=== PATIENT | male | born 1940 | race Caucasian/White ===

== ENCOUNTER 2017-12-20 19:35 | Inpatient (IN) | payer MEDICARE ==
[~2017-12-20] VITALS: Ht 193 cm; Wt 83.5 kg
[~2017-12-20 19:35] MED LIST: INSU3INS6 SUBCUT; LISI40TA4 PO; SIMV40TA5 PO
--- NOTE | 2017-12-20 19:40 | NUR ---
PT STOP594 FROM HOME. PER "MORE ALTERED THAN USUAL" AND "UNABLE TO WALK." PATIENT AAOX1. VSS. NAD NOTED. SKIN WARM AND DRY. COMFORT MEASURES RENDERED. SAFETY MEASURES IN PLACE.
[2017-12-20] MEDS ORDERED: IV NS 0.9% 500 ML BAG IV ONE (20:30)
--- NOTE | 2017-12-20 20:30 | NUR ---
PATIENT TO CT.
[2017-12-20 21:08] LABS: BASOPHILS # (AUTO) 0.1 /CMM (0.0-0.2); BASOPHILS % (AUTO) 0.7 % (0.0-2.0); EOSINOPHILS # (AUTO) 0.1 /CMM (0.0-0.7); EOSINOPHILS % (AUTO) 1.1 % (0.0-6.0); HEMATOCRIT 42 % (39-51); HEMOGLOBIN 14.7 g/dL (13.5-17.5); MEAN CORPUSCULAR HEMOGLOBIN 31 PG (26.0-33.0); MEAN CORPUSCULAR HGB CONC 36 g/dl (31.0-36.0); MEAN CORPUSCULAR VOLUME 88 fL (80-96); MONOCYTES # (AUTO) 0.8 /CMM (0.1-1.30); MONOCYTES % (AUTO) 9.5 % (2.0-12.0); NEUTROPHILS % (AUTO) 76.7 % (43.0-81.0); PLATELET COUNT (AUTO) 169 /CMM (150-450); RDW COEFFICIENT OF VARIATION 12.1 (11.5-15.0)
[2017-12-20 21:18] LABS: CALCIUM, SERUM 9.2 mg/dL (8.5-10.1); CARBON DIOXIDE 30 mmol/L (21-32); CHLORIDE 105 mmol/L (98-107); GLUCOSE 130 mg/dL (74-106); SODIUM SERUM 140 mmol/L (136-145); UREA NITROGEN, BLOOD 19 mg/dL (7-18)
[2017-12-20 21:24] LABS: ALANINE AMINOTRANSFERASE 15 U/L (12-78); ALBUMIN 3.6 g/dL (3.4-5.0); ALKALINE PHOSPHATASE 99 U/L (46-116); ASPARTATE AMINOTRANSFERASE 14 U/L (15-37); BILIRUBIN,DIRECT 0.3 mg/dL (0.0-0.2); BILIRUBIN,TOTAL 1.2 mg/dL (0.2-1.0); TOTAL PROTEIN, SERUM 7.2 g/dL (6.4-8.2)
[2017-12-20 21:25] LABS: INR 0.95 (0.85-1.15)
[2017-12-20 21:26] LABS: TROPONIN I < 0.017 ng/mL (0.00-0.056)
[2017-12-20 21:31] LABS: APPEARANCE,URINE Slightly Cloudy (CLEAR); BILIRUBIN,URINE Negative (NEGATIVE); BLOOD, URINE Negative Ery/uL (NEGATIVE); COLOR,URINE Yellow (YELLOW); KETONES,URINE Negative (NEGATIVE); LEUKOCYTE ESTERASE ,URINE Negative (NEGATIVE); NITRITE, URINE Negative (NEGATIVE); PROTEIN,URINE Negative (NEGATIVE); UGLUCOSE 500 MG/DL mg/dL (NEGATIVE)
[2017-12-20 21:37] LABS: BACTERIA,URINE Few /HPF (None Seen); RBC,URINE 0-2 /HPF (0-2); SQUAMOUS EPITHELIAL CELL,UR Rare /HPF (None Seen); WBC,URINE 0-2 /HPF (0-3)
--- NOTE | 2017-12-20 21:54 | NUR ---
TELE 314-2
--- NOTE | 2017-12-20 22:01 | NUR ---
REPORT GIVEN TO ARMINDA BRADLEY FOR ADMISSION AND REMY.
--- NOTE | 2017-12-20 22:10 | NUR ---
TRANSFERRED PATIENT TO TELE BED VIA ALS PROTOCOL, NO INCIDENT NOTED.
[2017-12-20 22:15] VITALS: BP 139/71
--- NOTE | 2017-12-20 22:15 | NUR ---
MS BRADLEY OPENING NOTES: RECEIVED PT FROM ED VIA [employer]. PT IS A/OX1. PT ONLY ORIENTED TO SELF. PT HAS IV ON R AC #18G AND IS PATENT AND INTACT. BED ALARM ACTIVATED. CALL LIGHT WITHIN PT'S REACH. BED KEPT IN LOW, LOCKED POSITION, AND SIDE RAILS X 2UP. WILL CONTINUE TO MONITOR. AWAITING FOR MD ORDERS. Addendum: 12/20/17 at 2308 by SHRUTHI GHOSH RN TELE
[2017-12-20 22:49] VITALS: BP 139/71
--- NOTE | 2017-12-20 23:04 | NUR ---
MS BRADLEY NOTES: MD ON FLOOR. AWARE PT IS ON FLOOR. MD WORKING ON ORDERS. Addendum: 12/20/17 at 2308 by SHRUTHI GHOSH RN TELE
--- NOTE | 2017-12-20 23:12 | NUR ---
MS RN NOTES: DR. CARLOS Herzog AT BEDSIDE.
[2017-12-20] MEDS ORDERED: MAGNESIUM HYDROXIDE 30 ML UDC PO PRN (23:30)
[2017-12-20] MEDS ORDERED: DEXTROSE 50%-WATER 50 ML DISP.SYRIN IV PRN (23:30)
[2017-12-20] MEDS ORDERED: ONDANSETRON HCL/PF 4 MG/2 ML VIAL IVP PRN (23:30)
[2017-12-20] MEDS ORDERED: ACETAMINOPHEN 325 MG TABLET PO PRN (23:30)
[2017-12-20] MEDS ORDERED: QUETIAPINE FUMARATE 25 MG TABLET PO ONE (23:30)
[2017-12-20] MEDS ORDERED: OLANZAPINE 10 MG VIAL IM PRN (23:30)
[2017-12-20] MEDS ORDERED: ZOLPIDEM TARTRATE 5 MG TABLET PO PRN (23:30)
[2017-12-20] MEDS ORDERED: IV NS 0.9% 500 ML IV ONE (23:30)
[2017-12-21] MEDS: BLOOD SUGAR DIAGNOSTIC 1 EACH STRIP IN SCH ×4 (06:01→21:40)
--- NOTE | 2017-12-21 06:41 | NUR ---
MS RN NOTES: NO NOVOLOG/HUMALOG ON FLOOR. CHARGE NURSE AWARE AND SAID TO CONTACT PHARMACY AT 0700.
--- NOTE | 2017-12-21 06:47 | NUR ---
MS RN CLOSING NOTES: ALL NEEDS WERE ATTENDED AND ANTICIPATED FOR. PT ON ROOM AIR AND TOLERATING WELL. PT IS STILL A/OX1. AT TIMES, HIS SPEECH WILL SOUND GARBLED. PT HAS TO BE CONSTANTLY REORIENTED. PT'S RIGHT AC 18G REMAINS INTACT AND CURRENTLY H/L. BED ALARM ACTIVATED. CALL LIGHT WITHIN PT'S REACH. BED KEPT IN LOW, LOCKED POSITION, AND SIDE RAILS X 2UP. STILL AWAITING TO CALL PHARMACY FOR INSULIN. WILL ENDORSE TO AM NURSE FOR REMY.
--- NOTE | 2017-12-21 06:57 | NUR ---
MS RN NOTES: SPOKE AND TALKED TO PHARMACY IN REGARDS TO HAVE NOVOLOG/HUMALOG DELIVERED TO FLOOR. PHARMACY AWARE.
[2017-12-21 07:08] LABS: BASOPHILS % (AUTO) 0.3 % (0.0-2.0); EOSINOPHILS # (AUTO) 0.1 /CMM (0.0-0.7); EOSINOPHILS % (AUTO) 1.1 % (0.0-6.0); HEMATOCRIT 39 % (39-51); HEMOGLOBIN 13.5 g/dL (13.5-17.5); LYMPHOCYTES # (AUTO) 1.1 /CMM (0.8-4.8); LYMPHOCYTES % (AUTO) 15.5 % (20.0-44.0); MEAN CORPUSCULAR HEMOGLOBIN 31 PG (26.0-33.0); MEAN CORPUSCULAR HGB CONC 35 g/dl (31.0-36.0); MEAN CORPUSCULAR VOLUME 90 fL (80-96); MONOCYTES # (AUTO) 0.9 /CMM (0.1-1.30); MONOCYTES % (AUTO) 13.2 % (2.0-12.0); NEUTROPHILS # (AUTO) 4.9 /CMM (1.8-8.9); NEUTROPHILS % (AUTO) 69.9 % (43.0-81.0); PLATELET COUNT (AUTO) 156 /CMM (150-450); RDW COEFFICIENT OF VARIATION 13.1 (11.5-15.0); RED BLOOD CELL COUNT(AUTO) 4.34 MIL/uL (4.5-6.0); WHITE BLOOD COUNT (AUTO) 7.1 K/uL (4.3-11.0)
[2017-12-21] MEDS: INSULIN ASPART/LISPRO 100 UNIT/ML CARTRIDGE SQ PRN ×4 (07:19→21:45)
--- NOTE | 2017-12-21 07:20 | NUR ---
MS RN NOTES: BLOOD SUGAR THIS AM WAS 235. PHARMACY WAS ABLE TO DELIVER INSULIN. 4 UNITS OF INSULIN WAS ADMINISTERED.
--- NOTE | 2017-12-21 07:32 | NUR ---
RN OPEN NOTES RECEIVED REPORT FROM HYPERBARIC TECHNOLOGIST NURSE. PATIENT IS IN BED, CONFUSED. UNABLE TO COMPREHEND. BED IN LOW POSITION, LOCKED AND TWO SIDE RAILS ARE UP. CALL LIGHT WITHIN REACH FOR SAFETY. NO SIGNS AND SYMPTOMS OF DISTRESS. WILL CONTINUE TO ASSESS AND MONITOR PATIENT
--- NOTE | 2017-12-21 07:36 | NUR ---
MS RN NOTES: CALLED [facility] TO REQUEST FOR SCD PUMPS. NO BODY AVAILABLE. ALSO STARTED STROKE PACKET. PACKET GIVEN TO PT AT BEDSIDE. AM NURSE AWARE.
[2017-12-21 07:38] LABS: CALCIUM, SERUM 8.5 mg/dL (8.5-10.1); CARBON DIOXIDE 24 mmol/L (21-32); CHLORIDE 105 mmol/L (98-107); CREATININE 0.9 mg/dL (0.6-1.3); GLUCOSE 290 mg/dL (74-106); MAGNESIUM 1.8 mg/dL (1.8-2.4); PHOSPHORUS 3.2 mg/dL (2.5-4.9); POTASSIUM 5.1 mmol/L (3.5-5.1); SODIUM SERUM 140 mmol/L (136-145); UREA NITROGEN, BLOOD 17 mg/dL (7-18)
[2017-12-21 07:42] LABS: CHOLESTEROL 108 mg/dL (<200); HDL CHOLESTEROL 59 mg/dL (40-60); LDL 46 mg/dL (0-99); TRIGLYCERIDES 47 mg/dL (30-150)
[2017-12-21 08:00] VITALS: BP 136/67
[2017-12-21] MEDS: LISINOPRIL (20MG) 20 MG TABLET PO SCH (08:26)
--- NOTE | 2017-12-21 08:42 | NUR ---
TEXTED DR. DELGADILLO FOR MRI APPROVAL.
--- NOTE | 2017-12-21 12:15 | NUR ---
DR JUAREZ AT BEDSIDE TO EVALUATE PATIENT. PER DR JUAREZ, PATIENT NEEDS 1:1 SITTER. CHARGE NURSE AND NURSING DIESEL BUS MECHANIC NOTIFIED.
--- NOTE | 2017-12-21 12:20 | NUR ---
RADHA AT BEDSIDE
[2017-12-21] MEDS ORDERED: TRAZ-144 PO (12:24)
[2017-12-21] MEDS ORDERED: ASPI-605 PO (12:25)
--- NOTE | 2017-12-21 12:45 | NUR ---
LALITA GARCIA SIGNED THE MRI CONSENT. PLACED IN THE CHART Addendum: 12/21/17 at 1302 by TRINY GOLDSTEIN RN
--- NOTE | 2017-12-21 13:53 | NUR ---
PATIENT MOVED FROM 314-2 TO 310-2
[2017-12-21 16:00] VITALS: BP_SYST 136; BP_SYST 151; BP_DIAS 67; BP_DIAS 73
[2017-12-21] MEDS ORDERED: SIMVASTATIN 40 MG TABLET PO SCH (18:00)
[2017-12-21] MEDS ORDERED: INSULIN GLARGINE, 100 UNIT/ML CARTRIDGE SQ SCH (18:00)
--- NOTE | 2017-12-21 18:18 | NUR ---
RN CLOSING NOTES: PATIENT IS IN BED. ALERT BUT CONFUSED. ALL NEEDS WERE ATTENDED AND ANTICIPATED FOR. PT ON ROOM AIR AND TOLERATING WELL. PT HAS TO BE CONSTANTLY REORIENTED. PT'S RIGHT AC 18G REMAINS INTACT AND CURRENTLY H/L. BED ALARM ACTIVATED. CALL LIGHT WITHIN PT'S REACH. BED KEPT IN LOW POSITION, LOCKED AND 2 ASIDE RAILS ARE UP. 1:1 SITTER FOR TONIGHT. WILL ENDORSE TO WHEEL FILLER NURSE FOR REMY.
--- NOTE | 2017-12-21 19:05 | NUR ---
MS RN OPENING NOTES: RECEIVED PT IN BED AND IS LAYING DOWN AT THIS TIME. SITTER IS AT BEDSIDE. SON AT BEDSIDE WELL. PT IS A/OX1. PT HAS IV ON R AC #18G AND IS PATENT AND INTACT. WILL ORIENT PRN. CALL LIGHT WITHIN PT'S REACH. BED KEPT IN LOW, LOCKED POSITION, AND SIDE RAILS X 2UP. WILL CONTINUE TO MONITOR PT.
[2017-12-21 20:00] VITALS: BP 130/72
[2017-12-21] MEDS: SIMVASTATIN 40 MG TABLET PO SCH (21:41)
[2017-12-21] MEDS: QUETIAPINE FUMARATE 25 MG TABLET PO SCH (21:41)
[2017-12-21] MEDS: INSULIN GLARGINE, 100 UNIT/ML CARTRIDGE SQ SCH (21:46)
--- NOTE | 2017-12-21 21:46 | NUR ---
MS RN NOTES: BLOOD SUGAR WAS 177. LANTUS 10 UNITS TO BE ADMINISTERED. HAD TO MANUALLY ADMIN SINCE IT WAS NOT READING IT. ALSO 3 UNITS OF HUMALOG GIVEN. ORANGE JUICE GIVEN WELL. WILL CONTINUE TO MONITOR PT.
[2017-12-22] MEDS: BLOOD SUGAR DIAGNOSTIC 1 EACH STRIP IN SCH ×4 (06:03→21:48)
[2017-12-22] MEDS: INSULIN ASPART/LISPRO 100 UNIT/ML CARTRIDGE SQ PRN ×4 (06:36→21:42)
--- NOTE | 2017-12-22 06:38 | NUR ---
RN NOTES: BLOOD SUGAR THIS AM WAS 228. 4 UNITS OF INSULIN WAS ADMINISTERED.
--- NOTE | 2017-12-22 06:52 | NUR ---
MS RN CLOSING NOTES: ALL NEEDS WERE ATTENDED AND ANTICIPATED FOR. PT ON ROOM AIR AND TOLERATING WELL. PT ASLEEP AT THIS TIME. PT RESTING IN BED COMFORTABLY. SITTER AT BEDSIDE. IV ON R AC REMAINS INTACT. CALL LIGHT WITHIN PT'S REACH. BED KEPT IN LOW, LOCKED POSITION, AND SIDE RAILS X 2UP. WILL ENDORSE TO AM NURSE FOR REMY.
--- NOTE | 2017-12-22 07:25 | NUR ---
ms rn initial notes Received patient in bed, asleep, head fo bed elevated, no sob or distress noted, on room air. Patient is confused. sitter at bedside for constant monitoring. IV intact and patent, HL only. Scheduled for MRI of the brain today. Call light with in patient reach, will continue to monitor accordingly.
[2017-12-22 08:00] VITALS: BP 139/69
[2017-12-22] MEDS: LISINOPRIL (20MG) 20 MG TABLET PO SCH (08:41)
--- NOTE | 2017-12-22 09:00 | NUR ---
ms rn notes Dr. Lopez on site and informed about patient not on anticoagulant medication due to VTE score of 3. Per MD he will take a look at it first. Will continue to monitor accordingly.
[2017-12-22] MEDS: HYDROCODONE/APAP 5/325MG 1 EACH TABLET PO PRN (14:23)
[2017-12-22 16:00] VITALS: BP 129/72
--- NOTE | 2017-12-22 19:20 | NUR ---
RN OPEN NOTES RECEIVED PATIENT AWAKE IN BED. A/O X1. NO SIGNS OF DISTRESS OR DISCOMFORT. BREATHING EVEN AND UNLABORED. IV ACCESS IN RAC, PATENT AND INTACT, NO SIGNS OF REDNESS OR INFILTRATION. BED IN LOW LOCKED POSITION WITH SIDE RAILS X3. CALL LIGHT WITHIN REACH. WILL CONTINUE TO MONITOR.
--- NOTE | 2017-12-22 19:30 | NUR ---
ms rn closing notes All needs provided, attended, and anticipated. Endorsed to next shift RN to continue care. Patient is stable condition at this time.
[2017-12-22 20:00] VITALS: BP 131/68
[2017-12-22] MEDS: INSULIN GLARGINE, 100 UNIT/ML CARTRIDGE SQ SCH (21:41)
[2017-12-22] MEDS: QUETIAPINE FUMARATE 25 MG TABLET PO SCH (21:47)
[2017-12-22] MEDS: SIMVASTATIN 40 MG TABLET PO SCH (21:47)
[2017-12-23] MEDS: BLOOD SUGAR DIAGNOSTIC 1 EACH STRIP IN SCH ×4 (06:42→22:48)
[2017-12-23] MEDS: INSULIN ASPART/LISPRO 100 UNIT/ML CARTRIDGE SQ PRN ×4 (06:43→23:00)
--- NOTE | 2017-12-23 07:30 | NUR ---
ms rn initial notes Received patient in bed, asleep, head of bed elevated, no SOB or distress noted, on room air and tolerated well. IV intact and patent HL only. Sitter at bedside for constant monitoring. No facial grimace noted. call light with in patient reach, will continue to monitor accordingly.
[2017-12-23 08:00] VITALS: BP_SYST 107; BP_SYST 116; BP_DIAS 59; BP_DIAS 69
--- NOTE | 2017-12-23 08:05 | NUR ---
RN CLOSING NOTES PATIENT RESTING IN BED EASILY AROUSABLE. A/O X1. NO SIGNS OF DISTRESS OR DISCOMFORT. BREATHING EVEN AND UNLABORED. IV ACCESS IN RAC, PATENT AND INTACT, NO SIGNS OF REDNESS OR INFILTRATION. ALL NEEDS MET. NO SIGNIFICANT CHANGES THROUGH THE NIGHT. BED IN LOW LOCKED POSITION WITH SIDE RAILS X3. CALL LIGHT WITHIN REACH. ENDORSED TO AM SHIFT FOR REMY.
[2017-12-23] MEDS: LISINOPRIL (20MG) 20 MG TABLET PO SCH (08:34)
[2017-12-23] MEDS: DOCUSATE SODIUM LIQ 100 MG/10 ML UDC NG SCH (13:03)
[2017-12-23] MEDS: ENOXAPARIN SODIUM 40 MG/0.4 ML DISP.SYRIN SQ SCH (13:10)
[2017-12-23] MEDS: HYDROCODONE/APAP 5/325MG 1 EACH TABLET PO PRN (15:16)
[2017-12-23 16:00] VITALS: BP 128/74
--- NOTE | 2017-12-23 19:16 | NUR ---
ms rn closing notes All needs provided, attended, and anticipated. No pain or discomfort noted. Endorsed to next shift RN to continue care.
--- NOTE | 2017-12-23 19:20 | NUR ---
RN OPENING NOTES PATIENT IN BED, ALERT TO SELF, VERBALLY RESPONSIVE, NOTED WITH NO SOB, BREATHING EVEN AND UNLABORED, IN NO ACUTE DISTRESS AT THIS TIME. PLACED BED IN LOW POSITION AND LOCKED IN PLACE, CALL LIGHT PLACED WITHIN EASY REACH, SITTER AT BEDSIDE. WILL CONTINUE TO MONITOR.
[2017-12-23] MEDS: QUETIAPINE FUMARATE 25 MG TABLET PO SCH (22:57)
[2017-12-23] MEDS: SIMVASTATIN 40 MG TABLET PO SCH (22:57)
[2017-12-23] MEDS: INSULIN GLARGINE, 100 UNIT/ML CARTRIDGE SQ SCH (22:58)
--- NOTE | 2017-12-24 06:40 | NUR ---
RN CLOSING NOTES PATIENT IN BED, ASLEEP BUT EASILY AROUSABLE, ALERT TO SELF, VERBALLY RESPONSIVE, NOTED WITH NO SOB, BREATHING EVEN AND UNLABORED. NOTED PT WITH EPISODES OF GETTING UP FROM BED DURING THE SHIFT, RE-ORIENTED NEEDED. ALL PATIENT'S NEEDS ATTENDED TO, PLACED BED IN LOW POSITION, LOCKED IN PLACE. SITTER AT BEDSIDE. WILL ENDORSE TO AM SHIFT NURSE FOR CONTINUITY OF CARE.
[2017-12-24] MEDS: BLOOD SUGAR DIAGNOSTIC 1 EACH STRIP IN SCH ×3 (06:42→12:54)
[2017-12-24] MEDS: INSULIN ASPART/LISPRO 100 UNIT/ML CARTRIDGE SQ PRN ×2 (06:43→12:57)
--- NOTE | 2017-12-24 08:00 | NUR ---
MS RN RECEIVED ON BED, AWAKE,ALERT X1,VERY CONFUSE AT THIS TIME, PATIENT NOT IN ANY FORM OF DISTRESS, RESPIRATIONS EVEN AND UNLABORED,NO SOB NOTED, LUNGS ARE DIMINISHED,ABDOMEN SOFT,POSITIVE BOWEL SOUNDS,DENIES PAIN AT THIS TIME, WILL MONITOR PATIENT'S CONDITION.
--- NOTE | 2017-12-24 09:00 | NUR ---
MS BRADLEY BREAKFAST SERVED,DUE MEDS GIVEN,TOLERATED WELL.
[2017-12-24 10:00] VITALS: BP 121/62
[2017-12-24] MEDS: DOCUSATE SODIUM LIQ 100 MG/10 ML UDC NG SCH (10:00)
[2017-12-24 10:01] VITALS: BP 121/62
[2017-12-24] MEDS: LISINOPRIL (20MG) 20 MG TABLET PO SCH (10:01)
[2017-12-24] MEDS: ENOXAPARIN SODIUM 40 MG/0.4 ML DISP.SYRIN SQ SCH (10:01)
--- NOTE | 2017-12-24 11:20 | NUR ---
MS RN WAS SEEN BY Javed EDWARDS/ OH TO BE TRANSFERRED TODAY TO SNF,ALL NEEDS ATTENDED.
--- NOTE | 2017-12-24 13:00 | NUR ---
MS RN PATIENT READY TO BE DISCHARGE, PICTURES TAKEN BUT PATIENT REFUSED TO TAKE PICTURES ON THE LEFT HEEL, KICKING EVERYBODY, VERY CONFUSE AT THIS TIME,.
--- NOTE | 2017-12-24 14:15 | NUR ---
MS RN PATIENT TRANSFERRED TO [facility], REPORT GIVEN TO ANNCY BRADLEY.NO DISTRESS NOTED.
== END 2017-12-24 14:30 | DRG 640 ==
LOC: ER 19:36 → TELE 21:59 → MED 12-21 05:31
PROVIDERS: ADMIT Internal Medicine; ATTEND Internal Medicine
DX: E86.0 Dehydration (principal); G92 Toxic encephalopathy; F03.90 Unspecified dementia, unspecified severity, without behavioral disturbance, psychotic disturbance, mood disturbance, and anxiety; E11.9 Type 2 diabetes mellitus without complications; M84.422A Pathological fracture, left humerus, initial encounter for fracture; F09 Unspecified mental disorder due to known physiological condition; I10 Essential (primary) hypertension; Z79.82 Long term (current) use of aspirin; Z79.899 Other long term (current) drug therapy; Z79.4 Long term (current) use of insulin; Z86.61 Personal history of infections of the central nervous system; Z87.820 Personal history of traumatic brain injury; E78.5 Hyperlipidemia, unspecified; H53.9 Unspecified visual disturbance; R47.9 Unspecified speech disturbances; V89.2XXS Person injured in unspecified motor-vehicle accident, traffic, sequela
CPT/HCPCS: 36415; 70450-TC; 70551-TC; 71045-TC; 80048-TC; 80061-TC; 80076-TC; 81000-TC; 82140-TC; 82962-TC; 83735-TC; 84100-TC; 84484-TC; 85025-TC; 85730-TC; 87081-TC; 97110-TC; 97112-TC; 97116-TC; 97530-TC; A4606; J1650; J1815; J7040; Z7610